=== PATIENT | male | born 1995 | race American Indian/Alaskan Native ===

== ENCOUNTER 2022-02-24 14:07 | Emergency (ER) | payer SELFPAY ==
[2022-02-24 20:43] VITALS: BP 127/89
[2022-02-24] MEDS ORDERED: AZITHROMYCIN 250 MG TAB PO ONE (20:50)
[2022-02-24] MEDS ORDERED: LIDOCAINE-MPF (1%) 10 MG/1 ML VIAL 5 ML INFILTRATI ONE (20:50)
--- NOTE | 2022-02-24 20:56 | Emergency Department Report ---
ED General Adult HPI - General Chief complaint: Urogenital-Male Stated complaint: infection Time Seen by Provider: 02/24/22 20:22 Source: patient Mode of arrival: Ambulatory Limitations: No Limitations - History of Present Illness Initial comments: 18-year-old male with no significant past medical history reports to the ER with complaints of a white discharge and burning for 2 days. Patient reports last unprotected sex with about 1 week ago. Patient reports no other acute symptoms at this time. No urinary frequency no urinary urgency. No abdominal pain. No scrotal tenderness. - Related Data Previous Rx's Medication Instructions Recorded Last Taken Type Doxycycline Hyclate 100 mg PO BID 7 Days #14 cap 02/24/22 Unknown Rx Allergies Allergy/AdvReac Type Severity Reaction Status Date / Time shellfish derived Allergy Unknown Verified 02/24/22 15:11 ED Review of Systems ROS: Stated complaint: infection Other details as noted in HPI Comment: All other systems reviewed and negative Genitourinary: discharge. denies: dysuria, frequency, testicular pain ED Past Medical Hx - Past Medical History Previous Medical History?: No - Medications Home Medications: Home Medications Medication Instructions Recorded Confirmed Last Taken Type Doxycycline Hyclate 100 mg PO BID 7 Days #14 cap 02/24/22 Unknown Rx ED Physical Exam - General Limitations: No Limitations General appearance: alert, in no apparent distress - Head Head exam: Present: atraumatic, normocephalic - Eye Eye exam: Present: normal appearance - ENT ENT exam: Present: mucous membranes moist - Neck Neck exam: Present: normal inspection - Respiratory Respiratory exam: Present: normal lung sounds bilaterally. Absent: respiratory distress - Cardiovascular Cardiovascular Exam: Present: regular rate, normal rhythm. Absent: systolic murmur, diastolic murmur, rubs, gallop - GI/Abdominal GI/Abdominal exam: Present: soft, normal bowel sounds - Rectal Rectal exam: Present: deferred - exam: Present: other (Patient deferred exam) - Extremities Exam Extremities exam: Present: normal inspection - Back Exam Back exam: Present: normal inspection - Neurological Exam Neurological exam: Present: alert, oriented X3 - Psychiatric Psychiatric exam: Present: normal affect, normal mood - Skin Skin exam: Present: warm, dry, intact, normal color. Absent: rash ED Course Vital Signs 02/24/22 02/24/22 15:09 20:43 Temperature 98.1 F Pulse Rate 56 L 63 Respiratory 18 12 Rate Blood Pressure 135/98 127/89 [Left] O2 Sat by Pulse 100 100 Oximetry ED Medical Decision Making - Medical Decision Making Patient informed that he will be getting tested for gonorrhea chlamydia. And be treated prophylactically here in the ER. Patient informed to take doxycycline twice daily for 7 days as directed. Patient informed if he is to continue to keep having symptoms to follow back up with his primary care provider or [facility]. If symptoms are to get worse to report back to the ER. Patient agrees with plan of care verbalized understanding. Vital Signs 02/24/22 02/24/22 15:09 20:43 Temperature 98.1 F Pulse Rate 56 L 63 Respiratory 18 12 Rate Blood Pressure 135/98 127/89 [Left] O2 Sat by Pulse 100 100 Oximetry Critical care attestation.: If time is entered above; I have spent that time in minutes in the direct care of this critically ill patient, excluding procedure time. ED Disposition Clinical Impression: Penile discharge, Possible exposure to STD Disposition: 01 HOME / SELF CARE / HOMELESS Is pt being admited?: No Condition: Stable Instructions: Gonorrhea Test, Safe Sex, Chlamydia Test Prescriptions: Doxycycline Hyclate 100 mg PO BID 7 Days #14 cap Referrals: [facility] Depart [Outside] - 3-5 Days
== END 2022-02-24 21:41 | disposition home or self-care (01) ==
LOC: ED 14:07
DX: R36.9 Urethral discharge, unspecified (principal); Z20.2 Contact with and (suspected) exposure to infections with a predominantly sexual mode of transmission; Z91.013 Allergy to seafood
CPT/HCPCS: 96372; 99282; J0696; J3490